=== PATIENT | female | born 1940 | race Caucasian/White ===

== ENCOUNTER 2020-03-28 06:19 | Day surgery (SDC) | payer MEDICARE, OTHER ==
[~2020-03-28] VITALS: Ht 162.6 cm; Wt 76.4 kg
[2020-03-28] MEDS ORDERED: LOSARTAN POTASS50 MG PO (06:42)
[2020-03-28] MEDS ORDERED: HYDROCHLOROTHIA25 MG PO (06:42)
[2020-03-28] MEDS ORDERED: POTASSIUM CHLO10 ME1 PO (06:42)
[2020-03-28] MEDS ORDERED: ADULT LOW DOSE81 MG PO (06:43)
[2020-03-28] MEDS ORDERED: HYDROXYUREA500 MG PO (06:43)
--- NOTE | 2020-03-28 08:06 | NUR ---
03/28/20 0806 Sun Velázquez 0802- PT ARRIVES TO PACU ALERT AND ORIENTED. PT REPORTS NO PAIN OR NAUSEA. OXYGEN SAT HIGH 90'S TO 100% ON 3L O2 VIA NC.
--- NOTE | 2020-04-02 13:07 | OR ---
[facility] [address], [place] [address] Signed DATE OF OPERATION: 03/28/2020 SURGEON: Ovi Deleon MD PREOPERATIVE DIAGNOSES: 1. Colon surveillance. 2. Known thrombocytosis. 3. Unknown family history as she is adopted. POSTOPERATIVE DIAGNOSIS: Diverticulosis of sigmoid, otherwise normal. PROCEDURE: Total colonoscopy to cecum. ANESTHESIA: Intravenous sedation, fentanyl 100 mcg, Versed 4 mg. INDICATION: This 79-year-old white woman is a patient Dr. Melissa Barrientos and is here for colon surveillance. She last underwent colonoscopy in 2008 in [place], [place], which was said to be negative for polyps. She has known thrombocytosis. She has unknown family history regarding colon cancer as she is adopted. She is admitted to undergo colonoscopy. She understands the risks of bleeding, infection, and perforation. FINDINGS: The prep was good. Complete colonoscopy was undertaken to the cecum and the colon was rather challenging in the sigmoid due to numerous diverticuli. There was no evidence of polyps or colitis, only diverticulosis of the sigmoid. DESCRIPTION OF PROCEDURE: The patient was brought to the endoscopy suite and placed in lateral decubitus position and given intravenous sedation to the point of slurred speech and nystagmus. Digital rectal examination was normal. Olympus video colonoscope was passed in the rectum and manipulated throughout the colon. Numerous diverticuli were seen in the sigmoid and a tortuous sigmoid was noted indeed. The scope was ultimately advanced to the cecum with good visualization of the ileocecal valve and appendiceal orifice. The scope was withdrawn from that point and examination throughout showed no sign of abnormality other than the diverticulosis, specifically no Electronically Signed By: OVI DELEON MD 04/02/20 1307 PATIENT NAME: JASMYNE BEAUCHAMP OPERATIVE REPORT DATE OF : 44 REPORT #: [id number] PHYSICIAN: OVI DELEON MD PCP: MELISSA BARRIENTOS MD REPORT IS CONFIDENTIAL AND NOT TO BE RELEASED WITHOUT AUTHORIZATION [facility] [address] [place] [id number] Signed polyps or cancer. Retroflex view of the rectum was normal. The scope was removed. The patient was taken to the recovery room in good condition. CONCLUDING DIAGNOSIS: Sigmoid diverticulosis. No evidence of polyps. PLAN: Recommend repeat colonoscopy in 10 years depending on clinical status what will be an advanced age of 89 years, consideration for colonoscopy sooner if symptoms should develop. She will return to the ongoing care of Dr. Melissa Barrientos. MD LINDA Stevenson/MODL /[id number] cc: Melissa Barrientos MD Copies: ~ Electronically Signed By: OVI DELEON MD 04/02/20 1307 PATIENT NAME: JASMYNE BEAUCHMAP OPERATIVE REPORT DATE OF : 44 REPORT #: [id number] PHYSICIAN: OVI DELEON MD PCP: MELISSA BARRIENTOS MD REPORT IS CONFIDENTIAL AND NOT TO BE RELEASED WITHOUT AUTHORIZATION
== END 2020-03-28 08:38 | disposition home or self-care (01) ==
LOC: OPS 06:19 → DS 06:19 → OPS 06:45 → DS 07:30 → OPS 08:38
PROVIDERS: ATTEND Surgery
PROC: 0DJD8ZZ Inspection of Lower Intestinal Tract, Via Natural or Artificial Opening Endoscopic (ICD-10-PCS; principal; 2020-03-28 06:45)
DX: Z12.11 Encounter for screening for malignant neoplasm of colon (principal); K57.30 Diverticulosis of large intestine without perforation or abscess without bleeding; D47.3 Essential (hemorrhagic) thrombocythemia; I10 Essential (primary) hypertension; Z88.2 Allergy status to sulfonamides
CPT/HCPCS: 99153; G0500; J2250; J3010; J7121